=== PATIENT | female | born 1960 | race Caucasian/White ===

== ENCOUNTER 2017-11-29 12:35 | Emergency (ER) | payer BC ==
[~2017-11-29] VITALS: Ht 157.5 cm; Wt 60.0 kg
[2017-11-29 12:42] VITALS: BP 118/86; PULSE 84; RESP 18; TEMP 98; O2SAT 99
[2017-11-29] MEDS ORDERED: COUM10TA PO ×2 (13:02)
[2017-11-29] MEDS ORDERED: COUM7.5T PO ×5 (13:02)
--- NOTE | 2017-11-29 13:13 | PD ---
HPI Chief Complaint: Flank/Kidney Pain Time Seen by Provider: 12:52 Travel History International Travel<30 days: No Contact w/Intl Traveler<30days: No Traveled to known affect area: No History of Present Illness HPI Patient 57-year-old female presents emergency department for evaluation of left flank pain. Patient states it gets better when she pushes pressure on it but gets worse when she takes deep breath. She states been going on for the past 2- 3 days. No nausea no vomiting no dysuria no blood in the urine. Patient states that she has never had any history of kidney stones or pain like this in the past. She did not even want to come in and be seen today but she states that her fianc wanted her to be seen. She states the pain is 6 out of 10 in intensity, left flank, no radiation, context and associated signs and symptoms as above. PFSH Past Medical History Medical other: Yes (osetoporosis, blood clot in brain ) Tetanus Vaccination: Unknown Influenza Vaccination: Yes ?: Not Past Surgical History Surgical History: No Previous Surgery Social History Alcohol Use: Yes (wine daily ) Tobacco Use: No Substance Use: No Allergies-Medications (Allergen,Severity, Reaction): Coded Allergies: amoxicillin (Verified Allergy, Unknown, 11/29/17) clavulanic acid (Verified Allergy, Unknown, 11/29/17) Reported Meds & Prescriptions Reported Meds & Active Scripts Active Keflex (Cephalexin) 500 Mg Cap 500 Mg PO Q6H 7 Days Reported Coumadin (Warfarin) 7.5 Mg Tab 7.5 Mg PO DAILY Coumadin (Warfarin) 7.5 Mg Tab 7.5 Mg PO SUNDAY Coumadin (Warfarin) 7.5 Mg Tab 7.5 Mg PO SUNDAY Coumadin (Warfarin) 7.5 Mg Tab 7.5 Mg PO SUNDAY Coumadin (Warfarin) 7.5 Mg Tab 7.5 Mg PO SUNDAY Coumadin (Warfarin) 10 Mg Tab 10 Mg PO SUNDAY Coumadin (Warfarin) 10 Mg Tab 10 Mg PO SUNDAY Review of Systems Except as stated in HPI: all other systems reviewed are Neg Physical Exam Narrative GENERAL: Well-developed well-nourished, no obvious distress, sitting in a stretcher playing on her phone and iPad. SKIN: Focused skin assessment warm/dry. HEAD: Atraumatic. Normocephalic. EYES: Pupils equal and round. No scleral icterus. No injection or drainage. ENT: No nasal bleeding or discharge. Mucous membranes pink and moist. NECK: Trachea midline. No JVD. CARDIOVASCULAR: Regular rate and rhythm. No murmur appreciated. RESPIRATORY: No accessory muscle use. Clear to auscultation. Breath sounds equal bilaterally. GASTROINTESTINAL: Abdomen soft, non-tender, nondistended. Hepatic and splenic margins not palpable. No CVA tenderness, no rebound no percussive tenderness MUSCULOSKELETAL: No obvious deformities. No clubbing. No cyanosis. No edema. NEUROLOGICAL: Awake and alert. No obvious cranial nerve deficits. Motor grossly within normal limits. Normal speech. PSYCHIATRIC: Appropriate mood and affect; insight and judgment normal. Data Data Last Documented VS Vital Signs Date Time Temp Pulse Resp B/P (MAP) Pulse Ox O2 Delivery O2 Flow Rate FiO2 11/29/17 15:20 81 16 116/89 (98) 97 11/29/17 13:20 Room Air 11/29/17 12:42 98.0 Orders Orders Urinalysis - C+S If Indicated (11/29/17 12:52) Basic Metabolic Panel (Bmp) (11/29/17 13:12) Complete Blood Count With Diff (11/29/17 13:12) Lipase (11/29/17 13:12) Prothrombin Time / Inr (Pt) (11/29/17 13:12) Act Partial Throm Time (Ptt) (11/29/17 13:12) Iv Access Insert/Monitor (11/29/17 13:12) Ecg Monitoring (11/29/17 13:12) Oximetry (11/29/17 13:12) Sodium Chloride 0.9% Flush (Ns Flush) (11/29/17 13:15) Urine Culture (11/29/17 13:00) Ed Discharge Order (11/29/17 15:07) Labs Laboratory Tests Test 11/29/17 13:00 11/29/17 13:20 Urine Color YELLOW Urine Turbidity HAZY Urine pH 7.0 Urine Specific Noel 1.019 Urine Protein TRACE mg/dL Urine Glucose (UA) NEG mg/dL Urine Ketones NEG mg/dL Urine Occult Blood NEG Urine Nitrite NEG Urine Bilirubin NEG Urine Urobilinogen LESS THAN 2.0 MG/DL Urine Leukocyte Esterase LARGE Urine RBC 1 /hpf Urine WBC 139 /hpf Urine Squamous Epithelial Cells 8 /hpf Urine Transitional Epithelial Cells 1 /hpf Urine Renal Epithelial Cells <1 /hpf Urine Amorphous Sediment RARE Urine Bacteria RARE /hpf Urine Mucus FEW /lpf Microscopic Urinalysis Comment CULTURE INDICATED White Blood Count 5.9 TH/MM3 Red Blood Count 4.89 MIL/MM3 Hemoglobin 16.7 GM/DL Hematocrit 48.5 % Mean Corpuscular Volume 99.2 FL Mean Corpuscular Hemoglobin 34.2 PG Mean Corpuscular Hemoglobin Concent 34.5 % Red Cell Distribution Width 14.6 % Platelet Count 226 TH/MM3 Mean Platelet Volume 9.1 FL Neutrophils (%) (Auto) 54.0 % Lymphocytes (%) (Auto) 26.7 % Monocytes (%) (Auto) 9.4 % Eosinophils (%) (Auto) 8.6 % Basophils (%) (Auto) 1.3 % Neutrophils # (Auto) 3.2 TH/MM3 Lymphocytes # (Auto) 1.6 TH/MM3 Monocytes # (Auto) 0.6 TH/MM3 Eosinophils # (Auto) 0.5 TH/MM3 Basophils # (Auto) 0.1 TH/MM3 CBC Comment DIFF FINAL Differential Comment Prothrombin Time 19.5 SEC Prothromb Time International Ratio 1.9 RATIO Activated Partial Thromboplast Time 30.6 SEC Blood Urea Nitrogen 12 MG/DL Creatinine 0.74 MG/DL Random Glucose 86 MG/DL Calcium Level 9.3 MG/DL Sodium Level 139 MEQ/L Potassium Level 4.1 MEQ/L Chloride Level 104 MEQ/L Carbon Dioxide Level 30.3 MEQ/L Anion Gap 5 MEQ/L Estimat Glomerular Filtration Rate 81 ML/MIN Lipase 94 U/L MDM Medical Decision Making Medical Screen Exam Complete: Yes Emergency Medical Condition: Yes Differential Diagnosis Kidney stone, musculoskeletal pain, hematuria, UTI Narrative Course Patient room to the emergency department, she appears quite comfortable in no distress. Sitting upright in a stretcher and really has benign physical examination. Her labs are reassuring and I do not see any indication for imaging at this time she is pain-free currently. I discussed that we could perform a CAT scan of her abdomen to see if there were any kidney stones or other pathology but at this time she would like to defer in lieu of symptomatic management. Discussed symptomatic management and return to ED criteria. Follow -up with primary care physician or the [facility]. Stable for discharge Diagnosis Primary Impression: UTI (urinary tract infection) Med/Other Pt SpecificInfo: Prescription(s) given Scripts Cephalexin (Keflex) 500 Mg Cap 500 MG PO Q6H for Infection for 7 Days, #28 CAP 0 Refills Prov: Franko Yeung MD 11/29/17 Disposition: 01 DISCHARGE HOME Condition: Stable Franko Yeung MD Nov 29, 2017 13:13
[2017-11-29] MEDS ORDERED: SODIUM CHLORIDE 0.9% FLUSH 10 ML FLUSH IV FLUSH PRN (13:15)
[2017-11-29 13:20] VITALS: O2SAT 98
[2017-11-29 13:42] LABS: AMORPHOUS SEDIMENT, URINE RARE; BACTERIA, URINE RARE /hpf; BILIRUBIN, URINE NEG (NEG); BLOOD, URINE NEG (NEG); GLUCOSE,URINE NEG (NEG); KETONE, URINE NEG (NEG); MUCUS URINE FEW /lpf (OCC); NITRITE,URINE NEG (NEG); RENAL EPITHELIAL CELLS <1 /hpf; SQUAMOUS EPITHELIAL CELL URINE 8 /hpf (0-5); TRANSITIONAL EPI CELLS, URINE 1 /hpf; URINE COLOR YELLOW (YELLW/STRAW); URINE LEUKOCYTE ESTERASE LARGE (NEG)
[2017-11-29 13:43] LABS: AUTOMATED NEUTROPHIL # 3.2 TH/MM3 (1.8-7.7); BASOPHIL # 0.1 TH/MM3 (0-0.2); BASOPHIL % 1.3 % (0.0-2.0); EOSINOPHIL # 0.5 TH/MM3 (0-0.4); EOSINOPHIL % 8.6 % (0.0-4.0); HEMATOCRIT 48.5 % (35.0-46.0); HEMOGLOBIN 16.7 GM/DL (11.6-15.3); LYMPH % 26.7 % (9.0-44.0); LYMPHOCYTE # 1.6 TH/MM3 (1.0-4.8); MEAN CELL VOLUME 99.2 FL (80.0-100.0); MEAN CORPUSCULAR HEMOGLOBIN 34.2 PG (27.0-34.0); MEAN CORPUSCULAR HGB CONC 34.5 % (32.0-36.0); MEAN PLATELET VOLUME 9.1 FL (7.0-11.0); MONO % 9.4 % (0.0-8.0); MONOCYTE # 0.6 TH/MM3 (0-0.9); PLATELET COUNT 226 TH/MM3 (150-450); RED BLOOD COUNT 4.89 MIL/MM3 (4.00-5.30); RED CELL DISTRIBUTION WIDTH 14.6 % (11.6-17.2); WHITE BLOOD COUNT 5.9 TH/MM3 (4.0-11.0)
[2017-11-29 13:55] LABS: INTERNATIONAL NORMALIZED RATIO 1.9 RATIO; PROTHROMBIN TIME - PATIENT 19.5 SEC (9.8-11.6)
[2017-11-29 14:10] LABS: BICARBONATE 30.3 MEQ/L (21.0-32.0); CALCIUM 9.3 MG/DL (8.5-10.1); CREATININE 0.74 MG/DL (0.50-1.00)
[2017-11-29] MEDS ORDERED: CEPH-460 PO (14:57)
[2017-11-29 15:20] VITALS: BP 116/89
== END 2017-11-29 15:22 | disposition home or self-care (01) ==
LOC: NEPD 12:35
DX: N39.0 Urinary tract infection, site not specified (principal)
CPT/HCPCS: 80048; 81001; 83690; 85025; 85610; 85730; 87086; 99283